=== PATIENT | female | born 1960 | race Caucasian/White ===

== ENCOUNTER 2019-01-24 14:00 | Inpatient (IN) | payer OTHER ==
[~2019-01-24] VITALS: Ht 160 cm; Wt 84.8 kg
--- NOTE | 2019-01-24 14:15 | NUR ---
PT WAS B/B AMBULANCE FROM HOME FOR ALOC STARTED LAST NIGHT.
--- NOTE | 2019-01-24 14:25 | NUR ---
PT VOMITED SMALL AMOUNT GOLD COLORED LIQUID. SUCTIONED ORALLY W/ SUAD.
--- NOTE | 2019-01-24 14:32 | NUR ---
1 MG NARCAN GIVEN IVP, PT SEEMED TO STIR A LITLE BIT IMMEDIATELY AFTERWARDS BUT STILL W/ EYES CLOSED/NON-VERBAL.
--- NOTE | 2019-01-24 14:35 | NUR ---
CODE BRAIN CALLED.
--- NOTE | 2019-01-24 14:37 | NUR ---
TO CT VIA SAYRARARLEN. EMT SHAUNNA ACCOMPANYING IN CASE SHE VOMITS MORE.
--- NOTE | 2019-01-24 14:43 | NUR ---
BACK FROM CT.
--- NOTE | 2019-01-24 14:44 | NUR ---
RT @ BEDSIDE. LAB @ BEDSIDE. ALEXANDER EMT @ BEDSIDE FOR EKG.
--- NOTE | 2019-01-24 15:12 | NUR ---
CXAY WAS BEDSIDE
[2019-01-24 15:16] LABS: BASOPHIL % 0.2 % (0-2); PLATELET COUNT 343 x10^3mcL (130-400); RED CELL DISTRIBUTION WIDTH 13.3 % (11.5-14.5)
[2019-01-24 15:33] LABS: ALBUMIN 3.4 g/dL (3.4-5.0); BILIRUBIN TOTAL 0.42 mg/dL (0.20-1.00); CALCIUM 8.9 mg/dL (8.5-10.1); CARBON DIOXIDE 18.9 mmol/L (21-32); POTASSIUM SERUM 4.9 mmol/L (3.5-5.1); TOTAL PROTEIN, SERUM 7.7 g/dL (6.4-8.2)
--- NOTE | 2019-01-24 15:43 | NUR ---
PT WAS INCONTINENT OF URINE ON ARRIVAL. CASTRO PLACED PER VERBAL ORDER DR. ROA. CLOUDY BROWN URINE RETURNED. URINE DIPPED & SENT TO LAB.
--- NOTE | 2019-01-24 15:54 | NUR ---
HERE, SHAKING PT TO GET HER TO RESPOND, PT BRIEFLY OPENED HER EYES.
--- NOTE | 2019-01-24 15:56 | NUR ---
PER , PT JUST STARTED ON BACLOFEN YESTERDAY. PT HAS VISITING NURSES D/T HER BLOOD SUGARS. PT C/O LEG PAIN SINCE LAST WEEK W/ DIFFICULTY WALKING. STATES YESTERDAY WHEN HE GOT HOME FROM WORK SHE WAS "BRANDIE GROGGY" & AGAIN THIS MORNING WAS AWAKE & TALKING BUT GROGGY. PT WAS UNABLE TO GET UP TO USE THE BATHROOM D/T LEG PAIN. PT HAD HEADACHE LAST WEEKEND. PT HAS RX BACLOFEN FILLED YESTERDAY, 20 MG, ONLY 2 PILLS HAVE BEEN TAKEN. URSULA LLAMAS .
[2019-01-24] MEDS ORDERED: NOR5 PO (16:06)
[2019-01-24] MEDS ORDERED: COZAAR100 MG PO (16:07)
[2019-01-24] MEDS ORDERED: LOVASTATIN40 MG PO (16:08)
[2019-01-24] MEDS ORDERED: LASIX40 MG PO (16:08)
[2019-01-24] MEDS ORDERED: PLAVIX75 M1 PO (16:09)
[2019-01-24] MEDS ORDERED: FEROSUL325 M1 PO (16:09)
[2019-01-24] MEDS ORDERED: RAYALDEE30 MCG PO (16:10)
--- NOTE | 2019-01-24 16:12 | NUR ---
MED REC COMPLETED USING BAG OF MEDS BROUGHT IN BY PT.
[2019-01-24 16:13] LABS: microscopic required? YES; urine erythrocyte 3+ (NEGATIVE)
[2019-01-24 16:21] LABS: AMPHETAMINE QUAL UR NONE DETECTED (See below)
--- NOTE | 2019-01-24 16:35 | NUR ---
REPORT GIVEN TO [facility]. PT WAS ADMINISTERED TO TELE. ROOM 253.
[2019-01-24 16:44] LABS: MAGNESIUM 2.7 mg/dL (1.8-2.4); PHOSPHOROUS 5.2 mg/dL (2.5-4.9)
[2019-01-24 16:54] LABS: FREE T4 1.29 ng/dL (0.76-1.46); FREE THYROXINE INDEX 2.4 ug/dL (1.4-4.5); T4(THYROXINE) 6.4 ug/dL (4.7-13.3)
[2019-01-24 17:10] VITALS: BP 118/82
[2019-01-24 17:27] LABS: T3 TOTAL 0.55 ng/mL
--- NOTE | 2019-01-24 17:30 | NUR ---
ASSUMED CARE FROM CODY RN, PT IN BED IN NO ACUTE DISTRESS, FAMILY AT BEDSIDE, IV PATENT AND INFUSING WELL, PALP PUSLES, CAP REFILL < 3S, FC DRAINED WELL W/ GRAVITY, ALL NEEDS ADDRESED AT THIS TIME, SAFETY PROTOCOL FOLLOWED, CONTINUE TO MONITOR
--- NOTE | 2019-01-24 17:36 | NUR ---
RECEIVED PT FROM ER, PT ADMIT METABOLIC ENCEPHALOPATHY, PT IS A/O X 1, VERY LETHARGIC, WAKE BY PAIN STIMULATION, AND ONLY ANSWER NAME WHILE AWAKE, UNABLE TO FOLLOW COMMAND AND ANSWER OTHER QUESTIONS. AND PT FALL INTO SLEEP RIGHT AWAY. LUNG SOUND DIM NEDRA, NO S/S OF SOB, PT IS ON 2L/MIN O2 VIA NC, PO2 100%, PT IS ON TELE 9, 1ST DEGREE AV BLOCK AND PAC, NO S/S OF CHEST PAIN, BOWEL SOUND PRESENT ALL 4 QUADRANTS, NO DISTENTION, NO TENDER. PEDAL PULSE PRESENT BOTH FEET, NO EDEMA, CASTRO CATH IN PLACE, CALLED SISTER BRIDGETTE GET INFORMATION. IV AT LEFT AC, NO LEAKING, NO INFITLRATION. ALL ADLS ASSIST, ALL NEED MET, CALL LIGHT IN REACH, WILL CONTINUE TO MONITOR.
--- NOTE | 2019-01-24 18:18 | NUR ---
PT IN BED, AXOX1, VERBALM, RESPONSE TO NAME AND VERBAL, CALM AND COPPERATVE, IN NO ACUTE DISTRESS, IV INFUSING WELL, FC DRAINED WELL, RESP EVEN, NO SOB/COUGH, TELE #9, ABD ROUND AND NON-TENDER TO TOUCH, SKIN D/W/C, FAMILY AT BEDSIDE, PALP PULSES, CAP REFILL < 3S, TURN Q2H, ALL NEEDS ADDRESSED AT THIS TIME, SAFETY MONITOR, WILL ENDORSE TO ONCOMING RN
--- NOTE | 2019-01-24 18:50 | NUR ---
RECEIVED PT TRANSFERED FROM [facility] VIA BED WITH PRIMARY NURSE AT BEDSIDE. PT IS LETHARGIC, PT OPENS EYES TO AUDITORY STIMULI, FOLLOW LIMITED SIMPLE COMMAND. PT'S BREATHING ON O2 2L VIA NC, EVEN, UNLABORED. CASTRO CATHETER IN PLACE, ARMINDA URINE. IV SITE PATENT, INTACT. RESUME 1L BOLUS. PT'S VS: TEMP 98.9, BP 175/59, HR 95, O2 SAT 98%. WILL ENDOSE PT'S CARE TO RECEIVING NURSE.
--- NOTE | 2019-01-24 18:56 | NUR ---
PT TRANSFERRED TO ICU, BED 6, REPOTED GIVEN TO CHARLIE RN, BELONGING AND HOME MEDS GIVEN TO TO BRING HOME, AND FAMILY MEMBER AWARE OF TRANSFERRING, WAITING IN ICU WAITNING ROOM
--- NOTE | 2019-01-24 19:00 | NUR ---
RECEIVED REPORT FROM NELLY SARAVIA. ALL CONCERNS ADDRESSED. RESUMED CARE OF PT. SEE SHIFT ASSESSMENT FOR ASSESSMENT.
--- NOTE | 2019-01-24 19:14 | NUR ---
TELEPHONED DR COWAN AND REPORTED PATIENT WITH ELEVATED BP (219/175). AWAIITNG NEW ORDERS.
[2019-01-24 19:33] LABS: IRON 38 ug/dL (50-170); TOTAL IRON BINDING CAPACITY 227 ug/dL (250-450)
--- NOTE | 2019-01-24 19:52 | NUR ---
RECIEVED CALL FROM EVA. UPDATES ON PT PLAN OF CARE. STATED PT LIVES W/ 2 BROTHERS AND FIEANCE. PT ALSO NOTED TO BE RECENTLY WHEELCHAIR BOUND BECAUSE OF PAIN IN LEGS WHICH SHE WAS PRESCRIBED MEDICATION FOR MUSCLE SPASMS W/ INABILITY TO RECALL MEDICATION NAME. STATED SHE WILL VISIT POSSIBLE TMRW 01/25.
[2019-01-24 20:01] VITALS: BP 149/81
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
[2019-01-24 21:08] LABS: BILIRUBIN TOTAL 0.4 mg/dL (0.20-1.00); CALCIUM 7.7 mg/dL (8.5-10.1); CARBON DIOXIDE 18.9 mmol/L (21-32); CREATININE SERUM 2.4 mg/dL (0.6-1.0); POTASSIUM SERUM 5.4 mmol/L (3.5-5.1); TOTAL PROTEIN, SERUM 6.9 g/dL (6.4-8.2)
[2019-01-24 23:09] VITALS: BP 128/66
--- NOTE | 2019-01-25 01:38 | NUR ---
PT W/ ELEVATED BP SYSTOLIC 180'S. ADM PRN HYRDALAZINE (SEE MAR). WILL CONT TO MONITOR.
[2019-01-25 03:36] VITALS: BP 136/59
--- NOTE | 2019-01-25 04:01 | NUR ---
PT RESTING CALMLY IN BED. NO ACUTE CHANGES. WILL CONT TO MONTIOR.
[2019-01-25 05:04] LABS: PLATELET COUNT 343 x10^3mcL (130-400); RED CELL DISTRIBUTION WIDTH 13.8 % (11.5-14.5)
[2019-01-25 05:17] LABS: BASOPHIL % 0 % (0-2)
[2019-01-25 05:21] LABS: BILIRUBIN DIRECT 0.12 mg/dL (0.0-0.2); BILIRUBIN TOTAL 0.29 mg/dL (0.20-1.00); CALCIUM 8.8 mg/dL (8.5-10.1); CARBON DIOXIDE 18.5 mmol/L (21-32); CREATININE SERUM 2.1 mg/dL (0.6-1.0); MAGNESIUM 2.1 mg/dL (1.8-2.4); PHOSPHOROUS 4.3 mg/dL (2.5-4.9); POTASSIUM SERUM 4.9 mmol/L (3.5-5.1); TOTAL PROTEIN, SERUM 6.8 g/dL (6.4-8.2)
[2019-01-25 05:22] LABS: ALBUMIN 2.8 g/dL (3.4-5.0)
--- NOTE | 2019-01-25 07:30 | NUR ---
RECEIVED PT'S REPORT FROM LEAVING NURSE. PT IS PRESENTING DROWSY, BUT EASILY AROUSED WITH EYES OPEN SPONTANEOUS AND VERBALLY ANSWER SIMPLE QUESTION. PT FOLLOW SOME SIMPLE COMMAND. PT BREATHING ON O2 2L VIA NC, EVEN, UNLABORED. CASTRO CATHER IN PLACE, DRAINING VIA GRAVITY, ARMINDA URIN COLOR. IV SITE PATENT, INTACT. IVF NS INFUSING AT 250ML/HR. WILL CONTINUE TO MONITOR.
[2019-01-25 09:02] VITALS: BP 169/68
--- NOTE | 2019-01-25 10:22 | NUR ---
PER MD ORDER, SEIZURE PRECAUTIONS INITIATED.
--- NOTE | 2019-01-25 10:22 | NUR ---
RECEIVED POISON CONTROL STAFF AMARIS CALL, PT'S CONDITION UPDATED. AMARIS STATED SHE WILL FOLLOW UP TOMORROW. HER PHONE # [phone].
--- NOTE | 2019-01-25 11:13 | NUR ---
ROUNDS: DR SANTANA, RESIDENTS, PRIMARY RN, AND HOOD MAKER AT BEDSIDE. PLAN IS TO CONTINUE FLUIDS, MONITOR OUTPUT TO ASSESS KIDNEY FUNCTION, AND CONTROL BP.
[2019-01-25 12:33] VITALS: BP 160/67
--- NOTE | 2019-01-25 12:43 | NUR ---
PT'S SBP STAYING > 160 FOR A FEW HOURS. HYDRALAZINE 20MG IVP GIVEN PER PRN ORDER. WILL CONTINUE TO MONITOR.
--- NOTE | 2019-01-25 13:05 | NUR ---
RECHECKED PT'S BP 118/53 (74), HR 97 BPM AFTER HYDRALAZINE GIVEN.
--- NOTE | 2019-01-25 13:45 | NUR ---
PT'S URSULA LLAMAS AT BEDSIDE, HIS PHONE [phone].
--- NOTE | 2019-01-25 14:50 | NUR ---
PT'S FAMILY MEMBERS AT BEDSIDE. PER PT'S DAUGHTER STATEMENT, PT HAS BEEN DIGNOSED 3RD STAGE KIDNEY PROBLEM. PT START VERBALLY MAKING HER NEEDS KNOWN IN SENTENCE. PT IS ABLE TO DRINK MILK THROUGH STRAW AND SWALLOW PUREE FOOD WITHOUT PROBLEM. PT'S VS STABLE. WILL CONTINUE TO MONITOR.
[2019-01-25 15:38] VITALS: BP 128/54
--- NOTE | 2019-01-25 18:59 | NUR ---
PT RESTING COMFORT ON BED, PT BREATHING ON RA, EVEN, UNLABORED AT THIS TIME. VS STABLE. IV SITE PATENT, INTACT. IVF NS INFUSING AT 250ML/HR. WILL ENDORSE PT'S CARE TO COMING NURSE.
[2019-01-25 19:40] VITALS: BP 152/58; BP 154/64
--- NOTE | 2019-01-25 19:40 | NUR ---
RECEIVED REPORT FROM DAY SHIFT RN. PT RESTING WITH EYES CLOSED. DROWSY. AROUSABLE WITH VERBAL STIMULI. ORIENTED TO PERSON. NO SOB NOTED. BREATHING EVEN AND UNLABORED TO ROOM AIR. IV TO LAC, NS INFUSING. CASTRO CATHETER IN PLACE DRAINING ARMINDA URINE BY GRAVITY. SAFETY MEASURES IN PLACE. BED IN LOW POSITION. SIDE RAILS WITH PADS. CALL LIGHT WITHIN REACH. WILL CONTINUE TO MONITOR.
--- NOTE | 2019-01-25 23:43 | NUR ---
PT RESTING WITH EYES CLOSED. AROUSABLE WITH VERBAL STIMULI. ORIENTED X2 (PERSON,PLACE). NO RESPIRATORY DISTRESS NOTED. BREATHING EVEN AND UNLABORED ON ROOM AIR. NO FACIAL GRIMACING. IV TO LAC, NS INFUSING. CASTRO CATHETER DRAINING ARMINDA URINE BY GRAVITY. SAFETY MEASURES IN PLACE. WILL CONTINUE TO MONITOR.
[2019-01-25 23:45] VITALS: BP 152/58
--- NOTE | 2019-01-26 03:00 | NUR ---
PT REPEATEDLY ASKING TO CALL HIS SON. REORIENTED PT TO TIME. EXPLAINED TO THE PT THAT IT IS TOO EARLY AND WILL TRY TO GET A HOLD OF THE SON IN THE MORNING. PT AGREED AND WENT BACK TO SLEEP.
[2019-01-26 03:35] VITALS: BP 157/53
--- NOTE | 2019-01-26 03:35 | NUR ---
PT RESTING WITH EYES CLOSED. AROUSABLE WITH VERBAL STIMULI. ORIENTED X2, PERSON AND PLACE. NO SOB ON ROOM AIR. NO C/O PAIN. NO DISTRESS NOTED. IV TO LAC, NS INFUSING. CASTRO CATHETER IN PLACE DRAINING ARMINDA URINE BY GRAVITY. SAFETY MEASURES IN PLACE. CALL LIGHT WITHIN REACH.
--- NOTE | 2019-01-26 04:43 | NUR ---
REPORTED PT'S LOW URINE OUTPUT. 750 ML DURING SHIFT. PER DR. SLATER, DECREASE FLUID RATE TO 150 ML/HR.
--- NOTE | 2019-01-26 05:11 | NUR ---
PT SLEPT AT LONG INTERVALS THROUGHOUT SHIFT. PT MORE AWAKE AND ALERT AT THIS TIME. PT REMAINED CONFUSED. ORIENTED TO PERSON/PLACE. REORIENTED TO TIME. PT WAS ABLE TO ANSWER MORE QUESTIONS. PT ABLE TO FOLLOW COMMANDS AND MAKE NEEDS KNOWN. CLEANED PT AND MADE COMFORTABLE. O2 SAT <90% ON ROOM AIR AFTER CLEANING THE PT. ADMINISTERED O2 2L VIA NC, O2 SAT IMPROVED 92%. SAFETY MEASURES MAINTAINED. ALL NEEDS ATTENDED TO. WILL CONTINUE TO MONITOR AND WILL ENDORSE CONTINUITY OF CARE TO DAY SHIFT RN.
[2019-01-26 05:31] LABS: BASOPHIL % 0.3 % (0-2); PLATELET COUNT 358 x10^3mcL (130-400); RED CELL DISTRIBUTION WIDTH 14.3 % (11.5-14.5)
[2019-01-26 05:56] LABS: CALCIUM 8.4 mg/dL (8.5-10.1); CARBON DIOXIDE 18.4 mmol/L (21-32); CREATININE SERUM 1.7 mg/dL (0.6-1.0); MAGNESIUM 1.8 mg/dL (1.8-2.4); PHOSPHOROUS 3.1 mg/dL (2.5-4.9); POTASSIUM SERUM 4.5 mmol/L (3.5-5.1)
[2019-01-26 07:49] VITALS: BP 153/66
[2019-01-26 09:07] VITALS: Ht 160 cm; Wt 84.8 kg
--- NOTE | 2019-01-26 11:30 | NUR ---
REPORT GIVEN TO NELLY HINOJOSA PRIOR TO PATIENT BEING TRANSFERRED TO [facility]. ALL QUESTIONS AND CONCERNS ADDRESSED. PATIENT TRANSFERRED AT THIS TIME VIA BED ACCOMPANIED BY NURSE. ALL BELONGINGS SENT WITH PATIENT. NO INCIDENCE OCCURRED.
[2019-01-26 11:35] VITALS: BP 135/50
--- NOTE | 2019-01-26 11:35 | NUR ---
RECEIVED PT FROM ICU VIA [place], BROUGHT BY ICU RNS ZULMA AND MANOJ. PT AA/OX4, NO S/S OF ACUTE DISTRESS. FOLLOWS COMPLEX COMMANDS, RESPONDS TO VERBAL STIMULI, FACE SYMMETRICAL, SPEECH CLEAR. [place] BILATERALLY, HEARING AIDS AT HOME. DENIES PAIN AT THIS TIME. NO CHEST PAIN. REPORTS INTERMITTENT SOB, DENIES AT THIS TIME, O2 SAT 89% ON 2LNC, INCREASED TO 4LNC, O2 SAT INCREASED TO 94%. RR EVEN/SHALLOW/UNLABORED. RR 20. LUNG SOUNDS DIMINISHED BLL. IV WNL TO LAC, 20 GAUGE, PATENT AND FLUSHES WELL. IV FLUIDS FLOWING. DENIES ABD. PAIN. NO N/V/D. HAD BM X1 TODAY. GENERALIZED WEAKNESS NOTED, ACTIVE LIMITED ROM NOTED BUE, PASSIVE LIMITED ROM NOTED BLE. ABLE TO MOVE TOE BLE. CAP REFILLS <3 SEC BUE/BLE. NO EDEMA NOTED. SKIN WARM, DRY, INTACT. BED IN LOW POSITION. FALL PRECAUTIONS IN PLACE. INSTRUCTED TO USE CALL LIGHT TO CALL FOR ASSISTANCE PRN. VERBALIZED UNDERSTANDING. CALL LIGHT WITHIN REACH. VS STABLE. WILL CONTINUE TO MONITOR.
--- NOTE | 2019-01-26 15:08 | NUR ---
RECEIVED CALL FROM POSITIONING CONTROL NURSE AMARIS, UPDATED PATIENT'S VITALS,MENTAL STATUS AND LABS, CASE CLOSED PER AMARIS DUE TO PATIENT'S OVERALL CONDITION HAS IMPROVED.
[2019-01-26 16:20] VITALS: BP 149/62
--- NOTE | 2019-01-26 18:53 | NUR ---
PT LAYING IN BED. AA/OX4, FORGETFUL AT TIMES. DENIES SOB ON 3LNC. NO CHEST PAIN. CALM/COOPERATIVE. NO GREEN. NO DIZZINESS. NO N/V. COMPLAINT OF GENERALIZED BODY WEAKNESS, ABLE TO MOVE BLE TOES AND HANDS. DENIES PAIN AT THIS TIME. FALL PRECAUTIONS IN PLACE. CASTRO IN TACT DRAINING CLEAR/YELLOW URINE. IV WNL TO LAC, PATENT AND FLUSHES WELL. IV FLUIDS FLOWING. BED IN LOW POSITION. CALL LIGHT WITHIN REACH. WILL ENDORSE TO ONCOMING SHIFT.
--- NOTE | 2019-01-26 19:30 | NUR ---
RECIEVED PT IN NO ACUTE DISTRESS. AOX4. MED SURG. BREATHING E/U ON NC @ 3L. DENIES PAIN/N/V. IV TO LAC, PATENT. CASTRO CATHETER IN PLACE. BED IN LOWEST POSITION, 2 SIDE RAILS UP, CALL LIGHT IN REACH. INSTRUCTED TO CALL FOR ASSISTANCE.
[2019-01-26 20:33] VITALS: BP 150/68
--- NOTE | 2019-01-26 22:40 | NUR ---
PT C/O CHEST PAIN 01/03 AND N/V. MEDICATED WITH ZOFRAN WITH GOOD EFFECT. DR MERCER MADE AWARE. STAT EKG ORDERED.
--- NOTE | 2019-01-27 03:17 | NUR ---
RESTING WITH EYES CLOSED. BREATHING E/U. NO ACUTE DISTRESS NOTED. WILL CONTINUE TO MONITOR.
[2019-01-27 05:35] VITALS: BP 149/72
[2019-01-27 06:32] LABS: BASOPHIL % 0.8 % (0-2); PLATELET COUNT 311 x10^3mcL (130-400); RED CELL DISTRIBUTION WIDTH 13.9 % (11.5-14.5)
--- NOTE | 2019-01-27 06:42 | NUR ---
NO ACUTE CHANGES. NO ACUTE DISTRESS NOTED. WILL CONTINUE TO MONITOR.
[2019-01-27 06:55] LABS: CALCIUM 7.8 mg/dL (8.5-10.1); CARBON DIOXIDE 17.9 mmol/L (21-32); CREATININE SERUM 1.5 mg/dL (0.6-1.0); MAGNESIUM 1.5 mg/dL (1.8-2.4); PHOSPHOROUS 2.3 mg/dL (2.5-4.9); POTASSIUM SERUM 4.1 mmol/L (3.5-5.1)
--- NOTE | 2019-01-27 08:00 | NUR ---
RECEIVED PT IN BED A/A/OX4 FORGETFUL. DENIES GREEN. RESP EVEN AND UNLABORED WITH DIMINISHED BS BILAT BASES. ON O2 AT 2L/MIN VIA NC, ON AND OFF. DENIES ANY SOB/CP/PRESSURE AT THIS TIME. NOTED WITH GENERALIZED EDEMA +1-2. IVF TO LAC NS AT 150ML/HR. ABD SOFT, OBESE, NONTENDER WITH ACTIVE BSX4. DENIES ANY N/V AT THIS TIME. CASTRO CATH TO GRAVITY WITH YELLOW URINE. NOTED WITH ECCHYMOSIS TO BUE, LT FLANK. GEN WEAKNESS, ABLE TO ASSIST WITH REPOSITIONING IN BED, OUT OF BED WITH PT. CALL LIGHT IN REACH NEEDS ATTENDED TO.
--- NOTE | 2019-01-27 08:10 | NUR ---
SCREEN FOR LOW NIDA SCALE AT RISK CONTINUE PRESSURE ULCER INJURY PREVENTION INTERVENTIONS: -TURN AND REPOSITION PATIENT Q 2H OFFLOAD LEFT AND RIGHT HIPS -ASSESS AND MONITOR SKIN CONDITION DURING POSITION CHANGE -OFFLOAD BILATERAL HEELS BY PLACING PILLOWS UNDER CALVES AT ALL TIMES, UNLESS OTHERWISE CONTRAINDICATED -PRESSURE REDISTRIBUTION SURFACE THERAPY -KEEP SKIN CLEAN AND DRY AT ALL TIMES.
[2019-01-27 09:55] VITALS: BP 127/62
--- NOTE | 2019-01-27 11:05 | NUR ---
PT C/O NAUSEA MEDICATED WITH ZOFRAN IVP PER EMAR.
[2019-01-27 14:00] VITALS: BP 136/59
--- NOTE | 2019-01-27 16:30 | NUR ---
PT RESTING AT THIS TIME. DENIES ANY DISCOMFORT. CALL LIGHT IN REACH NEEDS ATTENDED TO.
[2019-01-27 16:32] VITALS: BP 116/45
--- NOTE | 2019-01-27 18:17 | NUR ---
PT RESTING AT THIS TIME, DENIES ANY DISCOMFORT. ASSISTED WITH REPOSITIONING TO COMFORT. PT WORKED WITH PT WITH POOR ACTIVITY TOLERANCE. INSIDE SALES ENGINEER DISCUSSED D/C PLAN TO SNF FOR REHAB AND PT AGREABLE. IVF TO LAC, IV SITE PATENT. CALL LIGHT IN REACH NEEDS ATTENDED TO. SZ PRECAUTIONS MAINTAINED.
--- NOTE | 2019-01-27 19:10 | NUR ---
RECEIVED PT IN BED RESTING. NO SOB NOTED. NO S/S OF PAIN AT THIS TIME. IVF INFUSING WELL. SCATTERED ECCHYMOSIS TO BUE AND BLE. TURN Q2HR. BED IN LOWEST POSITION,CALL LIGHT WITHIN REACH. WILL CONTINUE TO MONITOR.
[2019-01-27 19:44] VITALS: BP 126/45
--- NOTE | 2019-01-27 22:18 | NUR ---
PT C/O VOMITING. MEDICATED ZOFRAN 4MG IV ORDERED. WILL CONTINUE TO MONITOR.
--- NOTE | 2019-01-28 00:15 | NUR ---
PT C/O PAIN ON HER FEET 11/03. MEDICATED TYLENOL 352 MG PO ORDERED. WILL CONTINUE TO MONITOR.
--- NOTE | 2019-01-28 05:18 | NUR ---
PT APPEARS TO BE SLEEPING. NO C/O PAIN. NO ACUTE RESPIRATORY DISTRESS NOTED. WILL CONTINUE TO MONITOR.
[2019-01-28 05:43] VITALS: BP 127/65
[2019-01-28 06:28] LABS: BASOPHIL % 0.6 % (0-2); PLATELET COUNT 279 x10^3mcL (130-400); RED CELL DISTRIBUTION WIDTH 14.5 % (11.5-14.5)
[2019-01-28 06:37] LABS: CALCIUM 7.8 mg/dL (8.5-10.1); CARBON DIOXIDE 15.3 mmol/L (21-32); CREATININE SERUM 1.5 mg/dL (0.6-1.0); POTASSIUM SERUM 4.4 mmol/L (3.5-5.1)
--- NOTE | 2019-01-28 07:23 | NUR ---
CARE ENDORSED TO DAY NURSE
[2019-01-28 08:03] VITALS: BP 129/53
--- NOTE | 2019-01-28 08:03 | NUR ---
AAO TIMES 4. MED SURG PATIENT. LUNGS CTA BUL, DIMINISHED BASES. O2 2L NC, O2 ST 95%. BS'S ACTIVE TIMES 4. NON PITTING EDEMA BUL, BLE. PERIPHERAL PULSES PALPABLE. NO C/O PAIN. NO SOB. COOPERATIVE.
--- NOTE | 2019-01-28 11:07 | NUR ---
Initial Nutrition Assessment: 253/B LUCY PADGETT HR Dx: ALOC PMHx: osteoporosis, stroke, diabetes, thyroid disease PSHx: Appendectomy, Other (tubal ligation b/l) Labs: BG 137H, BUN 31H, CREAT 1.5H, HGB 8.3L, A1C 8.6 (per progress note) Meds: D 50%, ferrous sulfate, humulin, Lipitor, zofran Diet: CCHO (Puree) PO Intake: (01/27) dinner, breakfast 40%, lunch 10%, (01/25) 20% all meals Ht: 160.02 cm (63") Wt: 84.8 kg (186#) BMI: 33.1 kg/m2 Bed scale: 90.5 kg IBW: 115# (52 kg) %IBW: 161 UBW: 85-90 kg Age: 58/F Food Allergies: NKFA Skin: scattered ecchymosis BUE Norm: 16 Edema: non pitting BLE GI: Last BM: 01/26 Trigger: unintentional wt loss, poor PO >3d Per H&P, Pt is a 58 yo F w PMH DM brought to ER by dee for ALOC. Pt was having severe leg pain and took 2 x 20 mg tablets of Baclofen yesterday (prescribed by her doctor). Pt was feeling tired and somnolent. She had a few episodes of NBNB vomiting reported by ER nurse. RDN Visit (01/28): Patient was alert and oriented and said that she had episode of vomiting this morning. She does not like the puree texture of the food and feels nauseous. I explained her the rationale of puree diet and risk for aspiration d/t poor swallowing ability. Patient said that she is able to swallow her food properly. Spoke with DEIDRE May, she will place an order for BILLET CHECKER evaluation. Problem with: N/V/D/C: nausea and vomiting Problems with: Chewing/Swallowing: none per patient Current appetite: poor Recent wt change: none %wt change: n/a Vitamin/Supplement use: Vitamin D, iron Special diet at home: regular Physical activity: sedentary Nutrition education given: Diabetes diet education was provided using [facility] handout on 'Type 2 Diabetes Nutrition Therapy'. Concepts like high fiber diet, label reading, types of carbohydrates and portion control were discussed. Patient verbalized understanding and did not have any questions at this time. Food-drug interactions: lipitor- avoid grapefruit Education given: no Estimated Nutritional Needs Based on ideal body weight 52 kg Energy: 4139-0829 kcal/d (25-30 kcal/kg) Protein: 52-62 g/d (1.0-1.2 g/kg) - preserve LBM Fluid: 2148-6947 ml/d (1 ml/kcal) or per doctor Nutrition Diagnosis 1. Inadequate oral intake related to nausea/vomiting as evidenced by documented PO of <75%. 2. Food and nutrition related knowledge deficit related to no prior diet education as evidenced by patient not following diabetic diet. Intervention 1. Recommend continuing CCHO (puree) diet until BILLET CHECKER eval. 2. Recommend Glucerna BID. 3. Diabetes diet education provided. Discussed recommendations with DEIDRE May. Monitor/Evaluate Goal: PO intake at least 75% of estimated needs Monitor: PO intake, Labs, GI function F/U in 2-3 days as high risk 01/30-
--- NOTE | 2019-01-28 11:07 | NUR ---
1. Recommend continuing CCHO (puree) diet until CERTIFIED CAREGIVER eval. 2. Recommend Glucerna BID. 3. Diabetes diet education provided. Discussed recommendations with DEIDRE May.
[2019-01-28 11:32] VITALS: BP 129/53
[2019-01-28] MEDS ORDERED: BACLOFEN20 MG PO (11:32)
--- NOTE | 2019-01-28 17:40 | NUR ---
DC'D IV ANGIO INTACT. DC'D CASTRO CATHETER WITHOUT DIFFICULTY. GAVE REPORT TO STONEY MOLINA AT [facility] AT 1730, PHNE # [phone]. IS SCHEDULED TO ARRIVE AT 1800 TO TAKE HER TO [facility].
--- NOTE | 2019-01-28 18:07 | NUR ---
AAO TIMES 4. MED SURG PATIENT. NO C/O PAIN. NO SOB. SHE SIGNED HER DISCHARGE PAPERS. REPORT WAS GIVEN TO STONEY MOLINA AT [facility], INCLUDING THAT THE CASTRO CATHETER WAS DC'D AND SHE NEEDS TO ASSESS HER FOR URINATION WHEN SHE GETS THERE. I ALSO TOLD STONEY THAT THIS PATIENT WAS C/O CONSTIPATION, AND THAT MOM WAS GIVEN AT 1023 AND COULD SHE PLEASE FOLLOW UP TO MAKE SURE SHE HAS A BM, ITS BEEN 3 DAYS PER PATIENT. FAMILY PRESENT, SUPPORTIVE.
--- NOTE | 2019-01-28 18:35 | NUR ---
ID BRACELETS REMOVED. REPORT GIVEN TO [employer]ICAL TRANSPORT TEAM. SHE IS READY TO GO, WEARING THE [employer] GOWN.
== END 2019-01-28 18:43 | DRG 917 ==
LOC: ED 14:00 → IC 16:11 → DU 16:11 → MU 16:11 → DU 16:53 → IC 18:25 → DU 18:27 → IC 18:45 → DU 18:55 → IC 18:56 → MU 01-26 11:40
PROVIDERS: Emergency Medicine; Internal Medicine; ADMIT Internal Medicine
DX: T42.8X1A Poisoning by antiparkinsonism drugs and other central muscle-tone depressants, accidental (unintentional), initial encounter (principal); G92 Toxic encephalopathy; N17.0 Acute kidney failure with tubular necrosis; J96.01 Acute respiratory failure with hypoxia; M62.82 Rhabdomyolysis; E86.0 Dehydration; E11.65 Type 2 diabetes mellitus with hyperglycemia; R74.0 Nonspecific elevation of levels of transaminase and lactic acid dehydrogenase [LDH]; M81.0 Age-related osteoporosis without current pathological fracture; D50.9 Iron deficiency anemia, unspecified; Z68.31 Body mass index [BMI] 31.0-31.9, adult; Z86.73 Personal history of transient ischemic attack (TIA), and cerebral infarction without residual deficits; Y92.009 Unspecified place in unspecified non-institutional (private) residence as the place of occurrence of the external cause
CPT/HCPCS: 36600; 82962; 84439; 85378; 94150; 97110-GP; 97530-GP; G0378; G0480; J0360; J0610; J2310; J2405; J3475; J7030; J7620; Q0092